=== PATIENT | female | born 1990 | race African-American/Black ===

== ENCOUNTER 2019-11-10 17:49 | Outpatient (CLI) | payer MEDICAID ==
[~2019-11-10] VITALS: Ht 162.5 cm; Wt 83.0 kg
--- NOTE | 2019-11-10 18:00 | NUR ---
NIMESH PINTO presented to unit ambulatory from home with c/o LOWER BACK AND ABD PAIN. NIMESH PINTO weighed, gowned, voided, and to bed. EFHM and TOCO applied, VS taken. NIMESH PINTO oriented to bed controls, call light, TV, heat, and A/C controls. States saw Dr. Kelsey yesterday. Told her she thought she was having contractions. Pain described by patient as in upper left quadrant, then lower abdomen, then "hips are on fire". No fluid leakage. Scheduled for repeat c/s on 11/[address] Merritt. No record available. Dr. Shelley police communications dispatcher tonelyssa for [facility] Out[facility].
[2019-11-10 18:05] VITALS: BP 115/73
[2019-11-10 18:28] LABS: BILIRUBIN,URINE NEGATIVE (NEGATIVE); CLARITY,URINE CLEAR; COLOR,URINE YELLOW; GLUCOSE, URINE (UA) NEGATIVE (NEGATIVE); KETONES,URINE NEGATIVE (NEGATIVE); LEUKOCYTE ESTERASE ,URINE TRACE (NEGATIVE); NITRITE,URINE NEGATIVE (NEGATIVE); PH,URINE 6.5 (5-9); PROTEIN,URINE NEGATIVE (NEGATIVE)
[2019-11-10 18:44] LABS: BACTERIA,URINE TRACE /HPF; WBC,URINE 0-2 /HPF
[2019-11-10 18:45] VITALS: BP 115/73
[2019-11-10 18:45] LABS: AMORPHOUS SEDIMENT,UR RARE AMOR URATES /LPF
[2019-11-10] MEDS ORDERED: LACTATED RINGERS 1,000 ML IV SCH ×2 (19:00→19:45)
--- NOTE | 2019-11-10 19:32 | NUR ---
Dr. Carreno called dr. Shelley regarding pt's ctx and ua results.
--- NOTE | 2019-11-10 19:44 | OB Triage Report ---
Standard Progress Note Progress Notes/Assess & Plan Date Seen by a Provider: Nov 10, 2019 Time Seen by a Provider: 18:00 Expected Date of Delivery: Nov 28, 2019 Gestational Age in Weeks: 37 Gestational Age in Days: 3 LMP/LASHON Comment: LASHON: 11/28/2019 Progress/Assessment & Plan Assessment: , 37w gestation UTI in Contractions h/o LTCS Lucille Montanez is a 29yo at 37w3d who presents to OB triage for contractions. Plan: Keflex 250mg q8h x 5 days 1L bolus LR Recommend abdominal binder Dr. Merritt consulted, saw patient and agreed with discharge and keep appt. for RLTCS CFM/TOCO Return precautions Patient seen and discussed with Dr. Kelsey. HPI: Lucille is a 29yo at 37w3d who presents for progressive abdominal pain that became contractions this afternoon. She states she has been having abdominal pain for the past 5 days or so and was seen in clinic yesterday for this pain. Her pain became for consistent and occurring every 10 minutes or so. She states that she has never experienced a pain like this in previous p regnancies. She denies dysuria , urgency, or frequency, but does state she has to lift her abdomen for that she is able to urinate. She's unsure if that's just where the baby is laying. She denies vision changes, headache, chest pain/pressure, shortness of breath, RUQ pain, or lower extremity edema. -LOF, -VB, +FM, +CTX Objective: General: NAD HEENT: NCAT, EOMI CV: RRR, peripheral pulses palpable Resp: No distress Abd: Gravid Ext: No swelling, nonttp SVE: cl/th/hi, soft FHR: 130s, acceleration present, no decels, category I tracing TOCO: 04/08- Final Diagnosis UTI in Diagnosis/Problems Diagnosis/Problems (1) UTI in Status: Acute Assessment & Plan: - Keflex 500mg BID x7days - UA: Leukocyte esterase, bacteria, crystals Qualifiers: Qualified Codes: O23.43 - Unspecified infection of urinary tract in , third trimester (2) 37 weeks Assessment & Plan: - 37w3d - Plan for RLTCS as scheduled - Dr. Merritt consulted, saw patient and agreed with plan above (3) Uterine contractions Assessment & Plan: - Recommend aggressive hydration at home - Recommend abdominal binder - Dr. Merritt consulted, saw patient and agreed with plan above DELROY MARTÍNEZ MD Nov 10, 2019 19:44
[2019-11-10] MEDS ORDERED: PREN-142 PO (20:08)
[2019-11-10] MEDS ORDERED: FERR325T18 PO (20:08)
--- NOTE | 2019-11-10 20:25 | NUR ---
Dr. Merritt notified of pt's status, okay to dc home with oral antibiotics.
[2019-11-10] MEDS ORDERED: CEPHALEXIN 250 MG (KEFLEX) CAP PO ONE ×2 (20:30→20:45)
--- NOTE | 2019-11-10 20:30 | NUR ---
Dr. Kelsey at bedside at this time. DC orders received.
[2019-11-10] MEDS ORDERED: CEPH-507 PO (20:34)
--- NOTE | 2019-11-10 20:50 | NUR ---
Discharge instructions read and reviewed with pt, Keflex 500mg BID x7 days RX given to pt to fill in AM. Pt verbalized understanding.
--- NOTE | 2019-11-10 20:51 | NUR ---
Pt ambulated off unit per self. no s/s of distress noted.
== END 2019-11-10 20:51 | disposition home or self-care (01) ==
LOC: WSo 17:49 → LDRP 17:50 → WSo 20:51
PROVIDERS: ATTEND Family Medicine
DX: O23.43 Unspecified infection of urinary tract in pregnancy, third trimester (principal); Z3A.37 37 weeks gestation of pregnancy
CPT/HCPCS: 81000; 87088; 96360; G0463; 99213

== ENCOUNTER 2019-11-15 12:00 | Outpatient (RCR) | payer MEDICAID ==
[~2019-11-15] VITALS: Ht 162.6 cm; Wt 83.6 kg
[~2019-11-15 12:00] MED LIST: CEPH-507 PO; FERR325T18 PO; PREN-142 PO
== END 2019-11-15 12:18 | disposition home or self-care (01) ==
LOC: PREOP 12:00
PROVIDERS: ATTEND Obstetrics & Gynecology
DX: Z01.818 Encounter for other preprocedural examination (principal)

== ENCOUNTER 2019-11-17 22:36 | Inpatient (IN) | payer MEDICAID ==
[~2019-11-17] VITALS: Ht 167 cm; Wt 90.0 kg
--- NOTE | 2019-11-17 22:40 | NUR ---
This RN called Dr Merritt to notify of patient arrival by EMS, and SROM. to come to hospital shortly. Admit orders and prepare for c section orders received.
--- NOTE | 2019-11-17 22:40 | NUR ---
NIMESH PINTO presented to unit via bed from EMS, accompanied by s/o and ED staff and EMS, with c/o CONTRACTIONS. NIMESH PINTO weighed, gowned, voided, and to bed. EFHM and TOCO applied, VS taken. NIMESH PINTO oriented to bed controls, call light, TV, heat, and A/C controls.
[2019-11-17] MEDS ORDERED: CITRIC ACID/SOB CIT (BICITRA) 30 ML UDC PO ONE (22:45)
[2019-11-17] MEDS ORDERED: CATHETER FLUSH 10 ML SYR IV PRN (22:45)
[2019-11-17] MEDS ORDERED: METOCLOPRAMIDE INJ 10 MG/2 ML (REGLAN) IV ONE (22:45)
[2019-11-17] MEDS ORDERED: ceFAZolin 2 GM IV Premixed 50 ML IV ONE (22:45)
[2019-11-17] MEDS ORDERED: LACTATED RINGERS 1,000 ML IV PRN ×2 (22:45)
[2019-11-17] MEDS ORDERED: FAMOTIDINE 20MG/2ML IV (PEPCID) IV ONE (22:45)
[2019-11-17] MEDS ORDERED: TERBUTALINE INJ 1 MG/ML (BRETHINE) AMP ONE (23:00)
[2019-11-17] MEDS ORDERED: ceFAZolin 2 GM IV Premixed 50 ML ONE (23:03)
[2019-11-17] MEDS ORDERED: METOCLOPRAMIDE INJ 10 MG/2 ML (REGLAN) ONE (23:03)
[2019-11-17] MEDS ORDERED: CITRIC ACID/SOB CIT (BICITRA) 30 ML UDC ONE (23:04)
[2019-11-17] MEDS ORDERED: FAMOTIDINE 20MG/2ML IV (PEPCID) ONE (23:04)
[2019-11-17] MEDS ORDERED: fentaNYL INJECTION 100 MCG/2 ML AMP ONE (23:19)
[2019-11-17] MEDS ORDERED: BUPIVACAINE 0.5% 30 ML (SENSORCAINE) VIAL ONE (23:19)
[2019-11-17] MEDS ORDERED: OXYTOCIN PRE-MIX DRIP 500 ML IV SCH (23:21)
--- NOTE | 2019-11-17 23:21 | History & Physical-OB ---
OB - Chief Complaint & HPI Date/Time Date of Admission: Date of Admission: 11/17/19 Date seen by a Provider: Nov 17, 2019 Time Seen by a Provider: 23:20 Chief Complaint/History OB-Reason for Admission/Chief: Onset of Labor Hx : 4 Hx Para: 2 Expected Date of Delivery: Nov 28, 2019 Gestational Age in Weeks: 38 Gestational Age in Days: 4 Indication for : desires repeat Admission Nurse Assessment Rev: Yes Allergies and Home Medications Allergies Coded Allergies: No Known Drug Allergies (Unverified , 11/10/19) Home Medications Ferrous Sulfate 325 Mg Tablet, 325 MG PO DAILY, (Reported) Patient Home Medication List Home Medication List Reviewed: Yes OB - History Hx of Present Care: Yes Ultrasounds: Normal mid trimester US Obstetrical Complications: None Medical Complications: None Patient Past Medical History none Social History/Family History 2nd Hand Smoke Exposure: No OB - Admission Exam Physical Exam HEENT: NCAT Heart: Rhythm Normal Lungs: Clear Abdomen: Gravid Extremities: Normal Reflexes: Normal Cervical Dilatation: 1cm Effacement: 75% Station: -1 Membranes: Ruptured Amniotic Fluid: Clear Heart Rate: 140's Accelerations: Accelerations Present Decelerations: Variable Decelerations Short Term Variability: Present Buckle Stapler Variability: Average (6-25) Contractions on Admission: < 5 Minutes Apart Intensity: Firm Labs Laboratory Tests Test 11/17/19 23:06 Range/Units OB - Assessment/Plan/Diagnosis Assessment Assessment: active labor, section Admission Dx 29 yo @ 38.4 Previous Active labor Admission Status: Inpatient Order (span 2 midnights) Reason for Inpatient Admission: Repeat Plan Plan: Section ALBERT DAMON DO Nov 17, 2019 23:20
[2019-11-17] MEDS ORDERED: OXYTOCIN PRE-MIX DRIP 1,000 ML IV ONE (23:23)
[2019-11-17] MEDS ORDERED: TETANUS,DIPTH,PERTUSS P/F (BOOSTRIX) 0.5 ML VIAL IM SCH (23:30)
[2019-11-17] MEDS ORDERED: ONDANSETRON 4 MG/2 ML (SDV) Z0FRAN IVP PRN (23:30)
[2019-11-17] MEDS ORDERED: MEASLES,MUMPS,RUBELLA 1 EA INJ SC SCH (23:30)
[2019-11-17 23:33] LABS: BASOPHILS % (AUTO) 0 % (0-10); EOSINOPHILS % (AUTO) 0 % (0-10); HEMATOCRIT 35 % (35-52); HEMOGLOBIN 12.1 G/DL (11.5-16.0); LYMPHOCYTES # (AUTO) 3.3 X 10^3 (1.0-4.0); LYMPHOCYTES % (AUTO) 29 % (12-44); MEAN CORPUSCULAR HEMOGLOBIN 31 PG (25-34); MEAN CORPUSCULAR HGB CONC 35 G/DL (32-36); MEAN CORPUSCULAR VOLUME 90 FL (80-99); MEAN PLATELET VOLUME 9.2 FL (7.4-10.4); MONOCYTES # (AUTO) 0.8 X 10^3 (0.0-1.0); MONOCYTES % (AUTO) 7 % (0-12); NEUTROPHILS # (AUTO) 7.2 X 10^3 (1.8-7.8); NEUTROPHILS % (AUTO) 63 % (42-75); PLATELET COUNT 346 10^3/uL (130-400); RED CELL DISTRIBUTION WIDTH 14.2 % (10.0-14.5); WHITE BLOOD COUNT 11.3 10^3/uL (4.3-11.0)
[2019-11-17] MEDS ORDERED: DCS100C PO (23:39)
[2019-11-17] MEDS ORDERED: IBUP-844 PO (23:39)
[2019-11-17] MEDS ORDERED: HYDR-3812 PO (23:39)
--- NOTE | 2019-11-17 23:41 | Discharge Inst-Women's Service ---
Discharge Inst-Women's Serv Depart Medication/Instructions New, Converted or Re-Newed RX: RX on Chart Final Diagnosis POD 2 RLTCS Problems Reviewed?: Yes Consults/Follow Up Additional Follow Up: Yes Orders/Referrals Dr. Merritt in 7-[address] Kelsey in 6 weeks Activity Activity: Activity as Tolerated Driving Instructions: No Driving for 1 Week NO SMOKING: NO SMOKING Nothing Inside Vagina: No Douching, No [place], No Tampons Diet Discharge Diet: No Restrictions Symptoms to Report to : Bleeding Excessive, Pain Increased, Fever Over 101 Degrees F, Vaginal Bleeding Increase, Questions/Concerns For Any Problems or Questions: Contact Your Physician Skin/Wound Care Infection Signs and Symptoms: Increased Redness, Foul Odor of Wound, Increased Drainage, Skin Itchy or Has a Rash, Increased Swelling, Temperature Above 101 F Operative Area Clean and Dry: Keep Incision Clean/Dry Stitches/[place]/Dermabond: Dermabond, Care of Stitches Bathing Instructions: ALBERT Anthony DO Nov 17, 2019 23:41
[2019-11-17 23:58] VITALS: BP 97/58
[2019-11-18] VITALS (12 sets, daily range): BP systolic 96–126; BP diastolic 60–89
--- NOTE | 2019-11-18 | NUR ---
2240: Pt arrived via ems, transfer to bed. Pt screaming out in pain, Pt grossly ruptured. sve performed, 1cm. s/o is at bedside. 2243: Pt placed on the monitor, iv started, LR infusing. 2250: here notified of fht down into the 90's. doctor at bedside. pt turned to right side. o2 placed per nonrebreather. 2303: Terb given. pt continues to moan and thrash around in the bed. rn remains at bedside. awaiting surgery crew to arrive. 2337: Pt dc'd from monitor and taken back to or via cart
[2019-11-18] MEDS ORDERED: PHENYLEPHRINE 100 MCG/ML 10 ML (ANESTHESIA) SYR ONE (00:15)
[2019-11-18] MEDS: KETOROLAC 30 MG/ML VIAL IV SCH ×3 (01:06→12:35)
--- NOTE | 2019-11-18 01:53 | NUR ---
Pt arrived back from recovery. Report received. Pt denies any pain at this time. Just c/o a little ache 2/10 scale. ff 1 below. scant rubra on her pad. assessment completed. info papers explained.
--- NOTE | 2019-11-18 02:35 | NUR ---
Tiesha pool'yoli pt tolerated well. Pt hungry, cold tray given.
[2019-11-18] MEDS: HYDROcodone/APAP 5 MG/325 MG (LORTAB) TAB PO PRN ×4 (04:19→22:51)
[2019-11-18] MEDS ORDERED: CATHETER FLUSH 10 ML SYR IV SCH ×2 (06:00)
[2019-11-18 06:26] LABS: BASOPHILS % (AUTO) 0 % (0-10); EOSINOPHILS % (AUTO) 0 % (0-10); HEMATOCRIT 31 % (35-52); HEMOGLOBIN 10.7 G/DL (11.5-16.0); LYMPHOCYTES # (AUTO) 1.9 X 10^3 (1.0-4.0); LYMPHOCYTES % (AUTO) 15 % (12-44); MEAN CORPUSCULAR HEMOGLOBIN 31 PG (25-34); MEAN CORPUSCULAR HGB CONC 35 G/DL (32-36); MEAN CORPUSCULAR VOLUME 90 FL (80-99); MEAN PLATELET VOLUME 9.2 FL (7.4-10.4); MONOCYTES # (AUTO) 1.2 X 10^3 (0.0-1.0); MONOCYTES % (AUTO) 10 % (0-12); NEUTROPHILS # (AUTO) 9.6 X 10^3 (1.8-7.8); NEUTROPHILS % (AUTO) 75 % (42-75); PLATELET COUNT 276 10^3/uL (130-400); RED CELL DISTRIBUTION WIDTH 14.2 % (10.0-14.5); WHITE BLOOD COUNT 12.8 10^3/uL (4.3-11.0)
--- NOTE | 2019-11-18 06:30 | NUR ---
Abdominal dsrg removed. incision c/d/i. Pt assisted to the bathroom. Positive void. pericare completed. pt ambulated back to bed. pt denies any needs. call light within reach.
--- NOTE | 2019-11-18 07:37 | Postpartum Progress Note ---
Note Note Day # 1 Subjective: Patient is without complaints. Ambulating, voiding. Tolerating a regular diet without nausea or vomiting. Normal lochia. Pain is well controlled with oral pain medications. Breast feeding. Still having significant pain in the abdomen that was improved with abdominal binder and pain medication. She has moderate bleeding vaginally, but denies any fluid or blood from the abdominal incision. Objective: Physical Exam: General - Alert and oriented, no apparent distress Abdomen - Soft, appropriately tender to palpation, non-distended, fundus firm at umbilicus Extremities - no edema, negative Coco's bilaterally Heart- Regular rate and rhythm no murmurs, normal peripheral pulses Respiratory- Clear to auscultation bilaterally, no ronchi, rales, or crackles Assessment: post- day # 1, status post 1 delivery. Recovering well, hemodynamically stable Plan: Routine care. Encourage breast feeding. Encourage ambulation. Ferrous sulfate supplementation. Plan for discharge Vitals - Labs Vital Signs - I&O Vital Signs Date Time Temp Pulse Resp B/P (MAP) Pulse Ox O2 Delivery O2 Flow Rate FiO2 11/18/19 02:30 37.2 74 18 119/67 (84) 99 Room Air 11/18/19 02:00 37.0 72 18 114/60 (78) 99 Room Air 11/18/19 01:40 Room Air 11/18/19 01:30 20 108/89 (95) 99 Room Air 11/18/19 01:30 Room Air 11/18/19 01:20 20 126/66 (86) 99 Room Air 11/18/19 01:15 Room Air 11/18/19 01:10 20 104/67 (79) 100 Room Air 11/18/19 01:00 20 107/65 (79) 100 Room Air 11/18/19 00:52 Room Air 11/18/19 00:52 37.2 20 96/61 (73) 98 Room Air 11/17/19 23:58 36.2 80 18 100 Room Air I & O 11/18/19 07:00 Intake Total 1050 ml Output Total 700 ml Balance 350 ml Labs Laboratory Tests 11/17/19 23:06: White Blood Count 11.3H, Red Blood Count 3.86L, Hemoglobin 12.1, Hematocrit 35, Mean Corpuscular Volume 90, Mean Corpuscular Hemoglobin 31, Mean Corpuscular Hemoglobin Concent 35, Red Cell Distribution Width 14.2, Platelet Count 346, Mean Platelet Volume 9.2, Neutrophils (%) (Auto) 63, Lymphocytes (%) (Auto) 29, Monocytes (%) (Auto) 7, Eosinophils (%) (Auto) 0, Basophils (%) (Auto) 0, Neutrophils # (Auto) 7.2, Lymphocytes # (Auto) 3.3, Monocytes # (Auto) 0.8, Eosinophils # (Auto) 0.0, Basophils # (Auto) 0.0 11/18/19 05:55: White Blood Count 12.8H, Red Blood Count 3.41L, Hemoglobin 10.7L, Hematocrit 31L , Mean Corpuscular Volume 90, Mean Corpuscular Hemoglobin 31, Mean Corpuscular Hemoglobin Concent 35, Red Cell Distribution Width 14.2, Platelet Count 276, Mean Platelet Volume 9.2, Neutrophils (%) (Auto) 75, Lymphocytes (%) (Auto) 15, Monocytes (%) (Auto) 10, Eosinophils (%) (Auto) 0, Basophils (%) (Auto) 0, Neutrophils # (Auto) 9.6H, Lymphocytes # (Auto) 1.9, Monocytes # (Auto) 1.2H, Eosinophils # (Auto) 0.0, Basophils # (Auto) 0.0 MONALISA [facility] Nov 18, 2019 07:37
--- NOTE | 2019-11-18 08:00 | NUR ---
A.M. ASSESSMENT COMPLETED. VSS. PT HAS BEEN UP TO VOID. C/O CRAMPING. ABD BINDER ON.
[2019-11-18] MEDS: DOCUSATE SODIUM 100 MG (COLACE) CAP PO SCH ×2 (08:41→22:54)
--- NOTE | 2019-11-18 09:00 | NUR ---
ENCOURAGED AMBULATION AND INCENTIVE SPIROMETRY. S.O. AT BEDSIDE. IN ROOM.
--- NOTE | 2019-11-18 09:51 | OPERATIVE REPORT ---
DATE OF SERVICE: PREOPERATIVE DIAGNOSES: 1. A 29-year-old G4, P2 at 38 weeks' gestation. 2. Active labor. 3. Rupture of membranes. 4. Previous section x2. POSTOPERATIVE DIAGNOSES. 1. A 29-year-old G4, P2 at 38 weeks' gestation. 2. Active labor. 3. Rupture of membranes. 4. Previous section x2. PROCEDURE: Repeat low transverse section. SURGEON: Brandon Merritt DO ANESTHESIA: Spinal. ESTIMATED BLOOD LOSS: 100 mL. URINE OUTPUT: 300 mL clear at the end of the procedure. FLUIDS: 1100 mL lactated Ringer's solution. FINDINGS: A live female weighing 7 pounds 1 ounce, Apgars of 7 and 9. Grossly normal appearing uterus, bilateral fallopian tubes and ovaries. Dense adhesions of the omentum to the uterine serosa, dense adhesions of the rectus muscles, peritoneum and fascia, all of them conglomerate dense scar. SPECIMEN SENT: Placenta. INDICATIONS FOR PROCEDURE: This 29-year-old female arrived to the EMS in active labor with rupture of membranes. She had a previous section and scheduled for Thursday for repeat. Upon arrival, she was found to be 1 cm with gross rupture of membranes. We decided to proceed today with delivery. Risks of procedure were discussed with the patient in detail and after all of her questions were answered, consent was obtained preoperatively and the patient was taken to the operating room. OPERATIVE REPORT IN DETAIL: Once in the operating room, spinal anesthesia was found to be adequate. She was placed in a supine position with leftward tilt, prepped and draped in a normal sterile fashion. A timeout was performed. Anesthesia was tested. I then made a Pfannenstiel skin incision through the previously existing scar using knife and carried down to the underlying fascia using Bovie cautery. Fascial incision extended laterally using Bovie cautery. The fascia was densely adhesed to the rectus muscles. It was difficult to elevate the fascia and dissect it off the underlying rectus muscles; however, I did so meticulously with sharp and blunt dissection. This was done both on the superior and inferior margins of the fascia. Once this was done, the rectus muscles were also densely scarred. I made a separation window using a hemostat down the midline until I was able to identify what I believed to be peritoneum and then took the rectus muscle down the midline with sharp dissection, staying clear of the peritoneum and taking care to stay away from the bladder. Once the peritoneal access was obtained, there was clear fluid running out of the peritoneal incision. I extended this using blunt traction, at which point I noted that the hand was at the opening of the uterus, which has opened approximately 3 to 4 cm. Given her history of pain upon arrival I assumed uterine dehiscence, she had amniotic fluid inside her belly and she ruptured through her window. An Chava ring retractor was then placed in the peritoneal incision, which offers excellent lateral sidewall retraction. I extended the uterine incision using traction laterally, which allows me to identify the head, which I elevated up the incision and delivered through the incision using gentle suction. The nares and oropharynx were then bulb suctioned. Anterior and posterior shoulders were delivered. was brought in the operative field with the cords doubly clamped and cut and infant was handed off to awaiting nurses and Dr. Kelsey, who was in attendance. Cord blood was collected. Three-vessel cord was intact. Placenta was delivered spontaneously thereafter. IV Pitocin was initiated to facilitate uterine contraction. Uterine fundus became firm by manual massage. Uterus was then exteriorized and cleared of all endometrial clots and debris. I then proceeded with closing the uterine incision using 0 Vicryl suture in a running locked fashion. Second layer of imbricating 0 Monocryl was placed. Excellent hemostasis was noted after doing this. I took down the filmy adhesions of the omentum to the anterior serosal surface of the uterus and this was all made hemostatic in the process of doing this using the Bovie cautery. I then placed the uterus back in the pelvis and copiously irrigated the pelvis using normal saline. There was no active bleeding noted from any of my dissection planes. I placed Interceed over the anterior serosal margin of the uterus that was just release of adhesions as well as the lower uterine segment. I then proceeded with closing the rectus muscles and peritoneum in one layer using 3-0 Vicryl suture in an interrupted fashion. The fascia was reapproximated using 0 Vicryl suture in a running fashion. Subcutaneous tissue is very thin and does not need reapproximation. The skin was then reapproximated using 4-0 Monocryl running subcuticular. Dermabond was applied to the incision and sterile dressing with adhesive white tape. The patient tolerated the procedure well and sent to recovery in stable condition. Lap and sponge counts were correct at the end of the procedure. Instrument counts were correct as well. Two grams of Ancef were given preoperatively for infection prophylaxis. Job ID: [id number] DocumentID: [id number] Dictated Date: 11/18/2019 00:50:18 Director Of Occupational Therapy Date: 11/18/2019 07:24:47 Dictated By: DO DANNI NIX
--- NOTE | 2019-11-18 10:40 | NUR ---
LORTAB 5/325 MG 2 TABS P.O. FOR C/O ABD PAIN R/T GAS AND CRAMPING.
--- NOTE | 2019-11-18 10:45 | Anesthesia-Regional Post-Op ---
Regional Patient Condition Mental Status: Alert, Oriented x3 Circulation: Same as Pre-Op Headache: Absent Sensation: Full Recovery Motor Block: Absent Post Op Complications Complications None Follow Up Care/Instructions Patient Instructions None needed. Anesthesia/Patient Condition Patient is doing well, no complaints, stable vital signs, no apparent adverse anesthesia problems. DAPHNE ANDERSON DO Nov 18, 2019 10:45
--- NOTE | 2019-11-18 11:00 | NUR ---
AMBULATED OUT IN THE HALLWAY.
--- NOTE | 2019-11-18 12:00 | NUR ---
HAS BEEN IN TO ASSIST WITH .
--- NOTE | 2019-11-18 13:15 | NUR ---
EATING STORK MEAL.
--- NOTE | 2019-11-18 16:52 | NUR ---
LORTAB 5/325 MG 2 TABS P.O. FOR C/O ABD PAIN AND GAS PAIN.
[2019-11-18] MEDS ORDERED: SIMETHICONE 80 MG (MYLICON) CHEW ONE (16:57)
[2019-11-18] MEDS ORDERED: SIMETHICONE 80 MG (MYLICON) CHEW PO PRN (17:00)
--- NOTE | 2019-11-18 18:00 | NUR ---
INFANT. NURSERY AND HAS ASSISTED PRN.
[2019-11-18] MEDS: IBUPROFEN 600 MG (MOTRIN) TAB PO SCH (18:26)
--- NOTE | 2019-11-18 19:15 | NUR ---
REPORT RECEIVED AND CARES RESUMED BY THIS NURSE.
--- NOTE | 2019-11-18 21:40 | NUR ---
INITIAL SHIFT ASSESSMENT DONE. VSS. PT DENIES ANY NEEDS AT THIS TIME. AT SIDE IN OPEN CRIB.
--- NOTE | 2019-11-18 22:45 | NUR ---
PT REQUESTS LORTAB FOR INCISIONAL/UTERINE PAIN. WILL ADMINISTER 2 TAB PO AT THIS TIME.
[2019-11-19] MEDS: IBUPROFEN 600 MG (MOTRIN) TAB PO SCH ×4 (00:29→21:07)
--- NOTE | 2019-11-19 00:30 | NUR ---
SCHEDULED MOTRIN ADMINISTERED. PT DENIES ANY FURTHER NEEDS AT THIS TIME.
[2019-11-19 01:56] VITALS: BP 115/69
--- NOTE | 2019-11-19 01:56 | NUR ---
INFANT RETURNED TO ROOM. VS OBTAINED AND PT REPORT PAIN TOLERABLE. DENIES ANY NEEDS AT THIS TIME.
[2019-11-19] MEDS: HYDROcodone/APAP 5 MG/325 MG (LORTAB) TAB PO PRN ×3 (05:53→23:50)
--- NOTE | 2019-11-19 08:52 | Postpartum Progress Note ---
Note Note Day # 1 Subjective: Patient is without complaints. Ambulating, voiding. Tolerating a regular diet without nausea or vomiting. Normal lochia. Pain is well controlled with oral pain medications. Objective: [] Physical Exam: General - Alert and oriented, no apparent distress Abdomen - Soft, appropriately tender to palpation, non-distended, fundus firm at umbilicus Extremities - no edema, negative Coco's bilaterally Incision -c/d/i Assessment: POD 1 RLTCS Acute blood loss anemia Plan: Routine care. Encourage breast feeding. Encourage ambulation. Ferrous sulfate supplementation. Plan for discharge tomorrow Vitals - Labs Vital Signs - I&O Vital Signs Date Time Temp Pulse Resp B/P (MAP) Pulse Ox O2 Delivery O2 Flow Rate FiO2 11/19/19 01:56 36.6 84 18 115/69 (84) 99 11/18/19 21:40 36.6 74 18 124/83 (97) 98 Room Air 11/18/19 16:45 36.7 79 18 108/63 (78) 99 Room Air 11/18/19 12:00 36.5 64 18 112/62 (79) 99 Room Air I & O 11/19/19 07:00 Intake Total 2360 ml Output Total 1175 ml Balance 1185 ml ALBERT DAMON DO Nov 19, 2019 08:51
[2019-11-19 09:13] VITALS: BP 128/72
--- NOTE | 2019-11-19 09:13 | NUR ---
AM shift assessment completed and vital signs obtained, see interventions. Plan of care reviewed with patient. Patient verbalizes understanding and questions answered. Encouraged patient to ambulate in the halls to alleviate gas pain. Shower supplies provided. Scheduled Motrin and Colace PO given.
[2019-11-19] MEDS: DOCUSATE SODIUM 100 MG (COLACE) CAP PO SCH ×2 (09:16→21:05)
[2019-11-19 14:32] VITALS: BP 108/60
[2019-11-19 21:00] VITALS: BP 119/73
[2019-11-20 03:00] VITALS: BP 114/68
[2019-11-20] MEDS: IBUPROFEN 600 MG (MOTRIN) TAB PO SCH ×2 (03:26→10:11)
[2019-11-20 10:07] VITALS: BP 120/67
--- NOTE | 2019-11-20 10:07 | NUR ---
AM shift assessment completed and vital signs obtained, see interventions. Plan of care reviewed with patient. Patient verbalizes understanding and questions answered. Scheduled Motrin and Colace PO given. Lortab 2 PO given for patient's c/o pain rated 4/10. Patient denies any current needs or concerns at this time.
[2019-11-20] MEDS: DOCUSATE SODIUM 100 MG (COLACE) CAP PO SCH (10:10)
[2019-11-20] MEDS: HYDROcodone/APAP 5 MG/325 MG (LORTAB) TAB PO PRN (10:11)
--- NOTE | 2019-11-20 13:37 | Postpartum Progress Note ---
Note Note Day # 2 Subjective: Patient is without complaints. Ambulating, voiding. Tolerating a regular diet without nausea or vomiting. Normal lochia. Pain is well controlled with oral pain medications. Objective: Physical Exam: General - Alert and oriented, no apparent distress Abdomen - Soft, appropriately tender to palpation, non-distended, fundus firm at umbilicus Extremities - no edema, negative Coco's bilaterally Incision -c/d/i Assessment: POD 2 RLTCS Acute blood loss anemia Plan: Routine care. Encourage breast feeding. Encourage ambulation. Ferrous sulfate supplementation. Plan for discharge today Vitals - Labs Vital Signs - I&O Vital Signs Date Time Temp Pulse Resp B/P (MAP) Pulse Ox O2 Delivery O2 Flow Rate FiO2 11/20/19 10:07 37.2 88 16 120/67 (84) 97 Room Air 11/20/19 03:00 36.6 73 18 114/68 (83) 97 Room Air 11/19/19 21:00 36.8 94 18 119/73 (88) 98 Room Air 11/19/19 21:00 98 Room Air 11/19/19 14:32 36.4 89 16 108/60 (76) 98 Room Air ALBERT DAMON DO Nov 20, 2019 13:37
--- NOTE | 2019-11-20 14:20 | NUR ---
Discharge instructions and medications reviewed with patient both written and verbally. Patient verbalizes understanding and questions answered.
--- NOTE | 2019-11-20 15:12 | NUR ---
Patient discharged at this time via wheelchair and accompanied down to awaiting private vehicle by this RN. No signs or symptoms of distress noted.
== END 2019-11-20 15:12 | disposition home or self-care (01) | DRG 787 ==
LOC: WSo 22:36 → LDRP 22:36 → WSo 22:44 → LDRP 22:44
PROVIDERS: ADMIT Obstetrics & Gynecology; ATTEND Obstetrics & Gynecology
PROC: 10D00Z1 Extraction of Products of Conception, Low, Open Approach (ICD-10-PCS; principal; 2019-11-17 23:45)
DX: O34.211 Maternal care for low transverse scar from previous cesarean delivery (principal); D62 Acute posthemorrhagic anemia; O90.81 Anemia of the puerperium; Z37.0 Single live birth; Z3A.38 38 weeks gestation of pregnancy
CPT/HCPCS: 36415; 85025; 85027; 86850; 86900; 86901; 99212